=== PATIENT | male | born 1990 | race Caucasian/White ===

== ENCOUNTER 2021-04-17 12:27 | Emergency (ER) | payer SELFPAY ==
[2021-04-17 12:41] VITALS: BP 139/98; PULSE 92; RESP 18; TEMP 36.6; O2SAT 100
[2021-04-17 14:20] VITALS: BP 132/82; PULSE 74; RESP 16; TEMP 36.4; O2SAT 98
--- NOTE | 2021-04-17 14:26 | ED.GENADULT ---
HPI - General Adult General Chief complaint: Extremity Problem,Nontraumatic Stated complaint: numbness Time Seen by Provider: 04/17/21 13:06 Source: patient Mode of arrival: ambulatory Limitations: no limitations History of Present Illness HPI narrative: Patient is a 30-year-old male with chief complaint of occasional tingling and numbness to his R third, fourth, and fifth digits that has been going on for many weeks. 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 He denies any direct traumas or injuries recently. He denies any pain with range of motion. He reports he has been doing some research and talking to family and he believes he has carpal tunnel syndrome. He has not seen his PCP regarding his symptoms. Patient is a smoker. Related Data Allergies Allergy/AdvReac Type Severity Reaction Status Date / Time No Known Allergies Allergy Verified 04/17/21 13:13 Review of Systems Review of Systems: CONSTITUTIONAL: Denies fever, chills, or sweats. EYES: Denies visual changes, redness, or discharge. ENT: Denies rhinorrhea, congestion, sore throat, or otalgia. CARDIOVASCULAR: Denies chest pain, palpitations, or edema. RESPIRATORY: Denies cough or dyspnea. GASTROINTESTINAL: Denies abdominal pain, nausea, vomiting, or diarrhea. GENITOURINARY: Denies dysuria or hematuria. SKIN: Denies rash or itching. MUSCULOSKELETAL: Reports numbness and tingling to right hand denies back pain, joint pain, or myalgia. NEUROLOGIC: Denies headache, numbness, dizziness, or weakness. PSYCHIATRIC: Denies anxiety or depression. Exam Narrative: GENERAL: Well-appearing, well-nourished, and in no acute distress. HEAD: Normocephalic, atraumatic. EYES: PERRLA and EOMI. CHEST: No respiratory distress. No tachypnea. EXTREMITIES: Normal range of motion. No edema. Tinel's and phalen's test negative. No sign of acute trauma or injury. SKIN: Warm, dry, no rash. NEURO: No focal deficits. Alert and oriented x3. PSYCH: Normal mood and affect. Course Vital Signs Vital signs: Vital Signs Temperature 98 F 04/17/21 12:41 Pulse Rate 92 04/17/21 12:41 Respiratory Rate 18 04/17/21 12:41 Blood Pressure 139/98 H 04/17/21 12:41 Pulse Oximetry 100 04/17/21 12:41 Temperature 97.6 F 04/17/21 14:20 Pulse Rate 74 04/17/21 14:20 Respiratory Rate 16 04/17/21 14:20 Blood Pressure 132/82 04/17/21 14:20 Pulse Oximetry 98 04/17/21 14:20 Medical Decision Making MDM Narrative Medical decision making narrative: No acute sign of trauma or injury- patient also denies. Declines need for xray. Instructed to follow up with ortho for further investigation into his symptoms. Will rx medrol dosepak and naproxen to try to decrease possible inflammation which could be exacerbating his symptoms. Differential Diagnosis Differential Diagnosis: fracture, sprain, strain, carpal tunnel, dequervain's Vital Signs Vital Signs: Vital Signs Temperature 98 F 04/17/21 12:41 Pulse Rate 92 04/17/21 12:41 Respiratory Rate 18 04/17/21 12:41 Blood Pressure 139/98 H 04/17/21 12:41 Pulse Oximetry 100 04/17/21 12:41 Temperature 97.6 F 04/17/21 14:20 Pulse Rate 74 04/17/21 14:20 Respiratory Rate 16 04/17/21 14:20 Blood Pressure 132/82 04/17/21 14:20 Pulse Oximetry 98 04/17/21 14:20 Discharge Plan Discharge Clinical Impression: Numbness and tingling in right hand Patient Disposition: Home, Self-Care Condition: Stable Instructions: Antibiotic Form, Peripheral Neuropathy (ED) Additional Instructions: Take medrol dosepak and naproxen as directed. Follow up with asw specialist for further investigation into your symptoms. You may need further imaging or nerve conduction testing. Return to the ER if you have any emergent symptoms. Prescriptions: New methylprednisolone [Medrol (Jaleel)] 4 mg tablets,dose pack See Rx Instructions .ROUTE .COMPLEX Qty: 21 RF: 0 naproxen 500 mg tablet 500 mg PO BID PRN (R
== END 2021-04-17 14:23 | disposition home or self-care (01) ==
PROVIDERS: Emergency Provider Emergency Medicine
DX: R20.2 Paresthesia of skin (principal); R20.0 Anesthesia of skin
CPT/HCPCS: 99283